=== PATIENT | male | born 1995 | race Caucasian/White ===

== ENCOUNTER 2019-03-06 13:53 | Emergency (ER) | payer OTHER ==
--- NOTE | 2019-03-06 16:46 | ED ---
GI/ HPI - HPI Summary HPI Summary: A 23 y/o male presents to [facility] with a chief complaint of right testicular swelling that has progressively getting worse since 03/05/19. Per triage note, the patient was "seen at [facility] and checked for hernia. also diagnosed with pilonidal cyst, prescribed keflex". At triage he rated his pain as a 7/10 in severity. He denies fever, chills, vomiting or any pain. He reports that he had some nausea while getting an ultrasound. - History of Current Complaint Chief Complaint: EDUrogenitalProblems Time Seen by Provider: 03/06/19 16:26 Stated Complaint: TESTICULAR FLUID PER PT SENT FROM [facility] Hx Obtained From: Patient Onset/Duration: Started Days Ago, Still Present Timing: Constant, Lasting Days Severity: Mild Current Severity: Severe Pain Intensity: 7 - out of 10 Additional Locations for Males: Testicles Associated Signs and Symptoms: Positive: Nausea. Negative: Vomiting, Fever, Chills Aggravating Factor(s): Nothing Alleviating Factor(s): Nothing - Allergy/Home Medications Allergies/Adverse Reactions: Allergies Allergy/AdvReac Type Severity Reaction Status Date / Time No Known Allergies Allergy Verified 03/06/19 14:04 Home Medications: Home Medications Cephalexin CAP* [Keflex CAP*] 500 mg PO QID 03/06/19 [History Confirmed 03/06/19 ] PMH/Surg Hx/FS Hx/Imm Hx Sensory History: Denies: Hx Deafness EENT History: Denies: Hx Deafness Infectious Disease History: No Infectious Disease History: Denies: Traveled Outside the [place] in Last 30 Days - Family History Known Family History: Negative: Blood Disorder - Social History Alcohol Use: Weekly Substance Use Type: Reports: Excessive Caffeine, Marijuana Smoking Status (MU): Light Every Day Tobacco Smoker Review of Systems Negative: Fever, Chills Positive: Nausea. Negative: Vomiting Positive: other - positive: right testicular swelling. Negative: pain All Other Systems Reviewed And Are Negative: Yes Physical Exam - Summary Physical Exam Summary: GENERAL: Patient is a well-developed and nourished M who is lying comfortable in the stretcher. Patient is not in any acute respiratory distress. HEAD AND FACE: Normocephalic EYES: PERRLA, EOMI x 2. EARS: Hearing grossly intact. MOUTH: Oropharynx within normal limits. NECK: Supple, trachea is midline, no adenopathy, no JVD, no carotid bruit. CHEST: Symmetric, no tenderness at palpation LUNGS: Clear to auscultation bilaterally. No wheezing or crackles. CVS: Regular rate and rhythm, S1 and S2 present, no murmurs or gallops appreciated. ABDOMEN: Soft, non-tender. Bowel sounds are normal. No abnormal abdominal pulsations. EXTREMITIES: Full ROM in all major joints, no edema, no cyanosis or clubbing. NEURO: Alert and oriented x 3. No acute neurological deficits. Speech is normal and follows commands. SKIN: Dry and warm pallonidal abscess swelling but no erythema or warmth to scrotal area no TTP Triage Information Reviewed: Yes Vital Signs On Initial Exam: Initial Vitals Temp Pulse Resp BP Pulse Ox 98.9 F 110 16 124/91 97 03/06/19 13:59 03/06/19 13:59 03/06/19 13:59 03/06/19 13:59 03/06/19 13:59 Vital Signs Reviewed: Yes Procedures - Incision and Drainage Buttocks Site: buttocks Anesthesia: Local, Lidocaine Instrument(s): Scalpel Packing: Other - Iodoform Diagnostics - Vital Signs Vital Signs Temp Pulse Resp BP Pulse Ox 03/06/19 13:59 98.9 F 110 16 124/91 97 - Laboratory Lab Statement: Any lab studies that have been ordered have been reviewed, and results considered in the medical decision making process. - Ultrasound No standard instances Ultrasound Interpretation Completed By: Radiologist Summary of Ultrasound Findings: Testicular ultrasound impression: No evidence for presence of an intratesticular lesion, testicular torsion, or. epididymoorchitis. Large bilateral hydroceles. ED physician has reviewed this imaging report. GIGU Course/Dx - Course Course Of Treatment: A 23 y/o male presents to [facility] with a chief complaint of right testicular swelling that has progressively getting worse since 03/05/19. Testicular ultrasound impression: No evidence for presence of an intratesticular lesion, testicular torsion, or. epididymoorchitis. Large bilateral hydroceles. The patient was already started on Keflex by Urgent Care. - Diagnoses Provider Diagnoses: Pilonidal abscess, Hydrocele Discharge - Sign-Out/Discharge Documenting (check all that apply): Patient Departure - DC Patient Received Moderate/Deep Sedation with Procedure: No - Discharge Plan Condition: Stable Disposition: HOME Patient Education Materials: Hydrocele (ED), Pilonidal Cyst (ED) Referrals: Félix San MD [Medical Doctor] - Camilo Shah MD [Medical Doctor] - Care [facility] [Outside] Additional Instructions: Follow up with urology and surgery. Follow up with your primary care physician in 1-3 days. RETURN TO THE EMERGENCY DEPARTMENT FOR CHANGING OR WORSENING SYMPTOMS. - Billing Disposition and Condition Condition: STABLE Disposition: Home - Attestation Statements Document Initiated by Scribe: Yes Documenting Scribe: Arpit Galvan Provider For Whom Scribe is Documenting (Include Credential): Malaika Butler MD Scribe Attestation: IArpit, scribed for Malaika Butler MD on 03/06/19 at 1824. Scribe Documentation Reviewed: Yes Provider Attestation: The documentation as recorded by the Arpit dumas accurately reflects the service I personally performed and the decisions made by me, Arron Butler MD Status of Scribe Document: Viewed
[2019-03-06] MEDS ORDERED: Lidocaine 1%** 5 ML VIAL ONE (17:00)
[2019-03-06 17:11] LABS: Urine Appearance Clear; Urine Bacteria Absent (Absent); Urine Bilirubin Negative (Negative); Urine Blood 1+ (Negative); Urine Color Yellow; Urine Glucose Negative (Negative); Urine Ketones Negative (Negative); Urine Nitrite Negative (Negative); Urine Protein Negative (Negative); Urine Red Blood Cell 2+(6-10/hpf) (Absent); Urine Specific Gravity 1.025 (1.010-1.030); Urine Squamous Epithelial Cell Present (Absent); Urine Urobilinogen Negative (Negative); Urine White Blood Cell Trace(0-5/hpf) (Absent)
[2019-03-06] MEDS ORDERED: oxyCODONE/Acetamin 5/325 MG* TAB PO ONE (17:36)
[2019-03-06] MEDS ORDERED: Ketorolac INJ* 60 MG/2 ML VIAL IM ONE (17:36)
[2019-03-06] MEDS ORDERED: Lidocaine 1%** 5 ML VIAL INJ ONE (17:40)
[2019-03-06 18:17] VITALS: BP 121/79
[2019-03-07 14:11] LABS: Neisseria gonorrhoeae (GC) RNA Negative (Negative)
--- NOTE | 2019-03-08 05:59 | PN ---
Progress Note - Progress Note Date of Service: 03/08/19 Note: patient wound culture grew Strept dysgalactiae. patient placed on keflex. will wait for final culture for sensitivity.
--- NOTE | 2019-03-09 06:04 | PN ---
Progress Note - Progress Note Date of Service: 03/09/19 Note: Patient was placed on Keflex which is sensitive to. No further action required.
== END 2019-03-06 18:18 | disposition home or self-care (01) ==
LOC: ED 13:53
DX: L05.01 Pilonidal cyst with abscess (principal); N43.3 Hydrocele, unspecified; F17.210 Nicotine dependence, cigarettes, uncomplicated
CPT/HCPCS: 10060; 76870; 81003; 81015; 87070; 87077; 87086; 87186; 87205; 87491; 87591; 87640; 87641; 96372; 99283; A9270-GY; J1885

== ENCOUNTER 2019-07-06 05:43 | Day surgery (SDC) | payer OTHER ==
--- NOTE | 2019-06-24 09:42 | HP ---
ADMITTING HISTORY AND PHYSICAL: DATE OF ADMISSION: 07/06/19 ADMITTING DIAGNOSIS: Right hydrocele. PLANNED PROCEDURE: Right hydrocelectomy. SURGEON: Dr. Shah HISTORY OF PRESENT ILLNESS: Martin Cornelius is a 23-year-old gentleman who was evaluated for discomfo rt secondary to a right hydrocele. He first noticed this some time back in February of 2019 and states t hat it has gotten progressively worse causing increased discomfort. He also has had some discomfort at the urethral meatus and I have not found any signs of urinary tract infections on multiple occasio ns and I offered to refer him to [facility] for further evaluation with Dr. Toribio, however, he is n ow having increasing discomfort with the hydrocele and would like to have that taken care off. PAST MEDICAL HISTORY: Unremarkable. MEDICATIONS ON ADMISSION: None. ALLERGIES: No known drug allergies. PAST SURGICAL HISTORY: Significant for appendectomy. FAMILY HISTORY: Noncontributory. SOCIAL HISTORY: Smoking history: He is a smoker, about one-third pack per day for the last 10 years . REVIEW OF SYSTEMS: He denies any chest pain or shortness of breath. There is no history of diabetes mellitus or any other major systemic illness. PHYSICAL EXAMINATION GENERAL: Reveals a pleasant healthy appearing young gentleman. VITAL SIGNS: Blood pressure is 110/72, pulse 78 per minute regular, temperature 98.4, oxygen saturat ion 95% on room air. LUNGS: Clear to bilaterally. CARDIOVASCULAR: Regular rate and rhythm. S1, S2. ABDOMEN: Soft without masses. : Moderate right hydrocele is noted. IMPRESSION: A 23-year-old gentleman with increasing discomfort secondary to right hydrocele. I hav e discussed the procedure in detail including possible risk of bleeding, infection, testicular pain, injury to the testicle and recurrence of the hydrocele. I have also given him the option on multiple occasions of holding off on surgery to see if there is any spontaneous resolution as he felt that th is was a fairly sudden onset, but because this is now being going on for almost 3 months and is causi ng increasing discomfort, he would like to proceed with the right hydrocelectomy. [id number]/[facility] #: [id number]
[~2019-07-06 05:43] MED LIST: Buffered Lidocaine 1% SYRIN* 1 ML/SYRINGE INTRADERM ONE; Lactated Ringers 1000 ML Bag* 1,000 ML IV SCH
[2019-07-06] MEDS ORDERED: Buffered Lidocaine 1% SYRIN* 1 ML/SYRINGE INTRADERM ONE (06:23)
[2019-07-06] MEDS ORDERED: cefTRIAXone(*) 2 GM ADDV.VIAL IVPB ONE (06:23)
[2019-07-06] MEDS ORDERED: Bupivacaine 0.5%* 50 ML MDV VIAL ONE (07:25)
[2019-07-06] MEDS ORDERED: Midazolam* 1 MG/ML 2 ML VIAL (2 MG) ONE (07:35)
[2019-07-06] MEDS ORDERED: fentaNYL* 50 MCG/ML 2 ML VIAL (100 MCG VIAL) ONE (07:35)
[2019-07-06] MEDS ORDERED: Dexamethasone IV* 4 MG/ML 1 ML (4 MG) ONE (07:53)
[2019-07-06] MEDS ORDERED: Lidocaine 2% PF * 5 ML VIAL ONE (07:53)
[2019-07-06] MEDS ORDERED: Ondansetron INJ* 2 MG/ML VIAL ONE (07:53)
[2019-07-06] MEDS ORDERED: Propofol* 10 MG/ML 20 ML BTL ONE (07:53)
[2019-07-06] MEDS ORDERED: Naloxone* 0.4 MG/ML 1 ML VIAL IV PRN (08:17)
[2019-07-06] MEDS ORDERED: HYDROcodone/ACETAMIN 5-325 MG* 1 TAB PO PRN (08:28)
[2019-07-06] MEDS ORDERED: Ketorolac INJ* 30 MG/ML 1 ML VIAL ONE (08:40)
[2019-07-06] MEDS ORDERED: HYDROmorphone INJ1* 1 MG/ML SYRINGE ONE (09:06)
[2019-07-06] MEDS: HYDROmorphone INJ1* 1 MG/ML SYRINGE IV PRN ×3 (09:08→09:33)
[2019-07-06] MEDS ORDERED: HYDROcodone/ACETAMIN 5-325 MG* 1 TAB ONE ×2 (09:16→09:21)
[2019-07-06 10:18] VITALS: BP 128/77
--- NOTE | 2019-07-06 13:45 | OP ---
DATE OF OPERATION: 07/06/19 - SDS DATE OF : 89 SURGEON: Dr. Shah. ANESTHESIOLOGIST: Dr. Vale. ANESTHESIA: General. PRE-OP DIAGNOSIS: Right hydrocele. POST-OP DIAGNOSIS: Right hydrocele. OPERATIVE PROCEDURES: Right hydrocelectomy. COMPLICATIONS: None. ESTIMATED BLOOD LOSS: Less than 25 cc. DRAIN: 1/4 inch Bristow drain, right hemiscrotum. POSTOPERATIVE CONDITION: Stable. OPERATIVE FINDINGS: Right hydrocele. INDICATIONS: Martin Cornelius is a 23-year-old gentleman who had increasing discomfort secondary to right hydrocele. He would like surgical repair of the same and I have discussed the procedure in detail including possible risks of bleeding, infection, continued pain, possible injury to the testicle, and after thorough discussion of the procedure and risks, he would like to proceed with the right hydrocelectomy. DESCRIPTION OF PROCEDURE: After induction of general anesthesia, the patient was placed on the operating table in supine position. External genitalia were prepped and draped in the usual sterile fashion. A transverse incision was made in the right hemiscrotum. The dartos was incised in the line of the incision. The tunica vaginalis was opened in a longitudinal fashion and about 100 cc of clear fluid was drained out. The tunica was then everted after inspection of the testicle revealed a normal healthy appearing testicle. The tunica was then everted and the everted edges were oversewn using 3-0 chromic sutures in a running fashion. The testicle was replaced back in its normal anatomic position taking care to make sure that the orientation was appropriate and a 1/4 inch Bristow drain was placed through the incision in the dependent part of the scrotum and anchored to the skin using 4-0 Prolene. The dartos was approximated using interrupted sutures of 3-0 chromic and the skin was approximated using interrupted horizontal mattress 3-0 chromic sutures. Dry sterile dressings were applied. The wound had been infiltrated with a total of 10 cc of 0.5% Marcaine. All sponge and needle counts were correct. The patient tolerated the procedure satisfactorily and was transferred back to recovery area in stable condition. [id number]/[facility] #: [id number] [facility]ALTH SYSTEMAbel
== END 2019-07-06 11:03 | disposition home or self-care (01) ==
LOC: OR 05:43
PROVIDERS: ATTEND Urology
DX: N43.3 Hydrocele, unspecified (principal); F17.210 Nicotine dependence, cigarettes, uncomplicated
CPT/HCPCS: J0696; J1100; J1170; J1885; J2250; J2405; J2704; J3010; J3490